=== PATIENT | male | born 1955 | race Caucasian/White ===

== ENCOUNTER 2016-12-12 09:52 | Emergency (ER) | payer SELFPAY ==
[~2016-12-12] VITALS: Ht 177.8 cm; Wt 86.4 kg
[2016-12-12] MEDS ORDERED: IBUPROFEN 800 MG TABLET PO ONE (10:30)
[2016-12-12] MEDS ORDERED: PROPARACAINE HCL 0.5% 15 ML OPHTHALMIC SOLUTION OS ONE (10:30)
[2016-12-12 11:58] VITALS: BP 141/83
== END 2016-12-12 12:14 | disposition home or self-care (01) ==
LOC: EMS 09:54
DX: H16.002 Unspecified corneal ulcer, left eye (principal); F17.210 Nicotine dependence, cigarettes, uncomplicated
CPT/HCPCS: 99283